=== PATIENT | male | born 1940 | race Caucasian/White ===

== ENCOUNTER → 2017-03-18 | Outpatient (CLI) | payer OTHER | END | disposition home or self-care (01) | LOC: PCVCIMAG 08:56 | PROVIDERS: ATTEND Internal Medicine Cardiovascular Disease | DX: I25.10 Atherosclerotic heart disease of native coronary artery without angina pectoris (principal); I42.9 Cardiomyopathy, unspecified; I10 Essential (primary) hypertension; Z95.1 Presence of aortocoronary bypass graft | CPT/HCPCS: 93306 ==

== ENCOUNTER → 2017-03-20 | Outpatient (CLI) | payer OTHER | END | disposition home or self-care (01) | LOC: PCVCCLINIC 14:31 | PROVIDERS: ATTEND Internal Medicine Cardiovascular Disease | DX: I25.10 Atherosclerotic heart disease of native coronary artery without angina pectoris (principal); I10 Essential (primary) hypertension; I71.4 Abdominal aortic aneurysm, without rupture; E78.00 Pure hypercholesterolemia, unspecified; Z79.82 Long term (current) use of aspirin; Z95.1 Presence of aortocoronary bypass graft; Z95.5 Presence of coronary angioplasty implant and graft | CPT/HCPCS: 93005; G0463 ==

== ENCOUNTER → 2018-04-07 | Outpatient (CLI) | payer OTHER | END | disposition home or self-care (01) | LOC: PCVCCLINIC 10:43 | DX: I25.10 Atherosclerotic heart disease of native coronary artery without angina pectoris (principal); I10 Essential (primary) hypertension; E78.00 Pure hypercholesterolemia, unspecified; Z79.82 Long term (current) use of aspirin; Z79.899 Other long term (current) drug therapy | CPT/HCPCS: 93005; G0463 ==

== ENCOUNTER → 2018-10-13 | Outpatient (CLI) | payer OTHER ==
[~2018-10-13] MED LIST: REGADENOSON 0.4 MG/5 ML DISP.SYRIN. IV ONE
--- NOTE | 2018-10-13 14:33 | PCVCIMAG ---
APPROVED REPORT Imaging Protocol: Rest Tc-99m/Stress Tc-99m 1 day Study performed: 10/13/2018 10:17:59 Indication: CAD , Dyspnea Patient Location: Out-Patient Stress Nurse: Shannon Gonzales RN, Lis Escobar RN [place] Tech:Sophia Gomezvianca [facility] Ht: 5 ft 9 in Wt: 190 lbs BSA: 2.02 m2 HR: 88 bpm BP: 131/100 mmHg BMI: 28.05 Rhythm: Sinus Rhythm, T wave abnormailty Medical History Medical History: HTN, Hyperlipidemia, Former Smoker, CAD, Age Medications: ASA, Atorvastatin, Losartan, Metoprolol Allergies: No known drug allergies Previous Cardiac Procedures: CABG, PCI - Stent to LM in , Known RCA occlusion Pretest Chest Pain Characteristics: No chest pain Exercise History: Physically active Physical Disabilities: Back Meds Held (24 hrs): Metoprolol Resting Data Rest SPECT myocardial perfusion imaging was performed in supine position 45 minutes following the intravenous injection of 11.2 mCi of Tc-99m Sestamibi. Time of rest injection: 0945 Date: 10/13/2018 Administration Route: IV Administration Site: Right AC Pharmacologic Stress Pharmacologic stress test was performed by injecting Regadenoson 0.4 mg IV push over 10-15 seconds immediately followed by the intravenous injection of 33.1 mCi of Tc-99m Sestamibi. Time of stress injection: 1045 Date: 10/13/2018 Administration Route: IV Administration Site: Right Arm Gated Stress SPECT was performed 45 minutes after stress injection. The images were gated to evaluate regional wall motion and calculate left ventricular ejection fraction. Stress Test Details Stress Test: Pharmacologic stress was paired with low level exercise. Reason for pharmacologic stress test: physical limitation, back issues. HRMax Heart Rate (APMHR): 143 bpm Resting HR: 88 bpmTarget HR (85% APMHR): 121 bpm Max HR Achieved: 123 bpm % of APMHR: 86 Recovery HR: 83 bpm BP Resting BP: 131/100 mmHg Max BP: 147/79 mmHg Recovery BP: 142/84 mmHg ECG Resting ECG: Sinus Rhythm, T-wave abnormality Stress ECG: Sinus Tachycardia, T-wave abnormality ST Change: Non-ischemic Arrhythmia: VPC's Recovery ECG: Sinus Rhythm, T-wave abnormality Clinical Reason for Termination: Completed protocol Stress Symptoms: None Exercise duration: 4 min 00 sec Symptoms resolved with caffeine. Study Quality Study: Good Study Data Post stress, the left ventricular ejection was 55%.. SSS: 0 SRS: 2 SDS: 0 TID = 1.11. Perfusion There is a medium area of moderately reduced uptake in the basal and mid segment of the inferior wall which is seen on the stress images and improves on the resting images. This area thickens and moves normally and is most consistent with ischemia. Wall Motion Normal left ventricular wall motion. Nuclear Conclusion ECG Findings: negative for ischemia Clinical Findings: non-diagnostic Nuclear Findings: positive for ischemia Exercise Capacity: not assessed Left Ventricular Function: normal This study reveals inferior ischemia, consistent with his known coronary anatomy. There is normal global and segmental LV systolic function.
== END | disposition home or self-care (01) ==
LOC: PCVCIMAG 09:19
PROVIDERS: ATTEND Internal Medicine Cardiovascular Disease
DX: I25.10 Atherosclerotic heart disease of native coronary artery without angina pectoris (principal); R06.00 Dyspnea, unspecified; I10 Essential (primary) hypertension; E78.5 Hyperlipidemia, unspecified; Z87.891 Personal history of nicotine dependence; Z95.1 Presence of aortocoronary bypass graft
CPT/HCPCS: 78452; 93017; A9500; J2785

== ENCOUNTER → 2019-04-19 | Outpatient (CLI) | payer OTHER | END | disposition home or self-care (01) | LOC: PCVCCLINIC 13:40 | PROVIDERS: ATTEND Internal Medicine Cardiovascular Disease | DX: I25.10 Atherosclerotic heart disease of native coronary artery without angina pectoris (principal); I10 Essential (primary) hypertension; E78.00 Pure hypercholesterolemia, unspecified; Z79.82 Long term (current) use of aspirin; E78.5 Hyperlipidemia, unspecified; Z95.1 Presence of aortocoronary bypass graft; Z87.891 Personal history of nicotine dependence | CPT/HCPCS: 93005; G0463 ==

== ENCOUNTER → 2019-04-22 | Outpatient (CLI) | payer OTHER ==
--- NOTE | 2019-04-22 15:36 | PCVCIMAG ---
APPROVED REPORT Study performed: 04/22/2019 13:23:22 EXAM: Comprehensive 2D, Doppler, and color-flow Echocardiogram Patient Location: Echo lab Room #: 2Status: routine BSA: 2.03 HR: 72 bpmBP: 134/72 mmHg Rhythm: NSR Other Information Study Quality: Adequate Risk Factors: Cardiac Risk Factors: HTN Indications Murmur CAD Hypertension/HDD S/P coronary artery stents Volumes Left Atrial Volume (Systole) Biplane LA Volume: 53.00 mLLA ESV Index: 26.00 mL/m2 TDI Medial E' Rinku.: 0.04 m/s Lateral E' Rinku.: 0.06 m/s Tricuspid Valve PA Pressure: 14.00 mmHg Left Ventricle The left ventricle is normal size. There is hypokinesis of the basal inferior wall. There is normal left ventricular wall thickness. Left ventricular systolic function is normal. LVEF is 55-60%. Grade I - abnormal relaxation pattern. Right Ventricle The right ventricle is normal size. The right ventricular systolic function is normal. Atria The left atrium size is normal. The right atrium size is normal. Aortic Valve The aortic valve is not well visualized. Aortic valve leaflets are moderately sclerotic with decreased leaflet excursion. No aortic regurgitation is present. Mild aortic stenosis. Mitral Valve The mitral valve is normal in structure. There is no mitral valve regurgitation noted. No evidence of mitral valve stenosis. Tricuspid Valve The tricuspid valve is normal in structure. There is no tricuspid valve regurgitation noted. Pulmonic Valve The pulmonary valve is normal in structure. There is no pulmonic valvular regurgitation. Great Vessels The aortic root is normal in size. The ascending aorta is normal in size. Aortic arch is normal in caliber. IVC is normal in size and collapses >50% with inspiration. Pericardium There is no pericardial effusion. There is no pleural effusion. <Conclusion> The left ventricle is normal size. There is normal left ventricular wall thickness. Left ventricular systolic function is normal. Grade I - abnormal relaxation pattern. The right ventricle is normal size. The left atrium size is normal. Mild aortic stenosis. There is no mitral valve regurgitation noted. There is no tricuspid valve regurgitation noted.
== END | disposition home or self-care (01) ==
LOC: PCVCIMAG 12:55
PROVIDERS: ATTEND Internal Medicine Cardiovascular Disease
DX: I35.0 Nonrheumatic aortic (valve) stenosis (principal); I25.10 Atherosclerotic heart disease of native coronary artery without angina pectoris; I10 Essential (primary) hypertension; R01.1 Cardiac murmur, unspecified
CPT/HCPCS: 93306